=== PATIENT | male | born 1960 | race Caucasian/White ===

== ENCOUNTER 2017-07-20 05:47 | Observation (INO) | payer BC, OTHER ==
--- NOTE | 2017-07-15 15:22 | GHP ---
[f rep st] PREOP HISTORY AND PHYSICAL DATE OF ADMISSION: 07/20/2017 PROBLEM: Left hip severe arthritis. HISTORY OF PRESENT ILLNESS: The patient is a 57-year-old man admitted for a left total hip arthropla sty. In the past year or so he has been experiencing increasing pain in the left hip. It started as groin pain. It has gradually worsened. He is having daily pain and mild night pain. He has troubl e putting on his shoes and socks on the left foot. He is using ibuprofen. His activities are very l imited because of his hip. A few years ago Dr. Castellanos performed a right total knee arthroplasty. Recently, he has been losing mot ion in the total knee. The knee is painful, and that also limits his activities. PAST MEDICAL HISTORY: He is treated for asthma and depression. No history of heart disease, stents, DVT, hepatitis, sleep apnea or bleeding problems. CURRENT MEDICATIONS: Bupropion XL 300 mg per day, Ventolin inhaler. ALLERGIES: Drug allergies: None. Metal allergy: None. Latex allergy: None. SOCIAL HISTORY: The patient is . His daughter lives with him. He does not smoke cigarettes and occasionally drinks alcohol. He is currently not working. FAMILY HISTORY: Positive for arthritis and cancer. PHYSICAL EXAMINATION: GENERAL: He is a muscular, fit-appearing man. Height 5 feet 10 inches. Weig ht 150 pounds. BMI 21.5. EYES: The conjunctivae and sclerae are clear. Pupils are round and react vivek. MOUTH: Good oral hygiene. No loose teeth. CHEST: Clear. HEART: Regular rhythm. No murmur s. EXTREMITIES: Pertinent findings are limited to his left hip. He has full hip extension and 80 d egrees of flexion. External rotation 0 degrees. Internal rotation 0 degrees. Abduction 20 degrees. Extremes of motion are painful. IMAGING: His films show advanced degenerative arthritis of his left hip. He has mild protrusio. Cy stic degeneration is present within the femoral head. IMPRESSION ON ADMISSION: 1. Left hip advanced degenerative arthritis. He is prepared for a left total hip arthroplasty. 2. Status post right total knee arthroplasty with difficulty regaining motion. 3. Treatment for asthma. 4. Treatment for hypertension. PLAN: He will undergo a left total hip arthroplasty. The surgery has been described to him, isabela maxwell the risks, complications, expectations and recovery time. I have discussed with him the risk of l eg length inequality, dislocation, sciatic nerve injury and infection. He understands that he is you ng for a total hip arthroplasty and might require revision surgery in the future. He is a few millim eters short on the left, and I intend to lengthen him. All his questions have been answered, and he consents to surgery. /[id number]/MODL
[2017-07-20] MEDS ORDERED: ACETAMINOPHEN 325 MG TAB PO ONE (05:58)
[2017-07-20] MEDS ORDERED: ceFAZolin 2 GM/SWFI 2 GM/20 ML SYR IVP ONE (05:58)
[2017-07-20] MEDS ORDERED: GABAPENTIN 300 MG CAP PO ONE (05:58)
[2017-07-20] MEDS ORDERED: DEXAMETHASONE 4 MG/ML VIAL IVP ONE (05:58)
[2017-07-20] MEDS ORDERED: FAMOTIDINE 20 MG TAB PO ONE (05:58)
[2017-07-20] MEDS ORDERED: LR 1,000 ML IV ONE (06:00)
[2017-07-20] MEDS ORDERED: ROPIVACAINE 0.2% 80 MG, EPINEPHrine 0.2 MG, KETOROLAC TROMETHAMINE 30 MG in SYRINGE 0 ML IU ONE (06:00)
[2017-07-20] MEDS ORDERED: TRANEXAMIC ACID 1,500 MG in NS 100 ML IV ONE (06:00)
[2017-07-20] MEDS ORDERED: POVIDONE-IODINE 20 ML in SODIUM CL IRRIG SOLUTION 500 ML IRR ONE (06:00)
[2017-07-20] MEDS ORDERED: MIDAZOLAM 2 MG/2 ML VIAL IVP ONE (06:53)
--- NOTE | 2017-07-20 06:53 | PDANEPAE ---
ANE History of Present Illness Hip OA ANE Past Medical History Past Medical History: L hip OA - Cardiovascular History Hx Hypertension: No Hx Arrhythmias: No Hx Chest Pain: No Hx Coronary Artery / Peripheral Vascular Disease: No Hx CHF / Valvular Disease: No Hx Palpitations: No - Pulmonary History Hx COPD: No Hx Asthma/Reactive Airway Disease: Yes Hx Recent Upper Respiratory Infection: No Hx Oxygen in Use at Home: No Hx Sleep Apnea: No Sleep Apnea Screening Result - Last Documented: Negative Pulmonary History Comment: asthma-inhaler as needed. pt uses regularly. - Neurologic History Hx Cerebrovascular Accident: No Hx Seizures: No Hx Dementia: No - Endocrine History Hx Diabetes: No Hypothyroid: No Hyperthyroid: No Obesity: no - Renal History Hx Renal Disorders: No - Liver History Hx Hepatic Disorders: No - Neurological & Psychiatric Hx Hx Neurological and Psychiatric Disorders: Yes Neurological / Psychiatric History Comment: depression, anxiety - Cancer History Hx Cancer: No - Congenital Disorder History Hx Congenital Disorders: No - GI History Hx Gastrointestinal Disorders: Yes Gastrointestinal History Comment: chronic heartburn-on med. ulcerative colitis - meds - Other Health History Other Health History: OSTEO-ARTHRITIS. tinnitus both ears - Chronic Pain History Chronic Pain: Yes (OSTEOARTHRITIS W/THUMBS, HIP, ELBOWS) - Surgical History Prior Surgeries: R TKA. R knee ANE Review of Systems Review of Systems: - Exercise capacity Exercise capacity: >=4 METS METS (RN): 4 METS ANE Patient History - Allergies Allergies/Adverse Reactions: No Known Allergies Allergy (Unverified 06/08/13 17:14) - Home Medications Home medications: home medication list seen and reviewed Home Medications: Albuterol Sulfate [Proventil Hfa] 2 puffs IH Q6 PRN 06/08/13 [Last Taken ] Bupropion HCl [Bupropion XL] 300 mg PO DAILY 06/08/13 [Last Taken 07/20/17] Calcium Carb/Mag Oxide/Cu/Zinc [Njbuqzf-Htucnnxry-Yniq Tab] 1 each PO DAILY 06/09 [Last Taken 07/12/17] Cholecalciferol (Vitamin D3) [Vitamin D3] 5,000 unit PO DAILY 06/08/13 [Last Taken 07/12/17] Citalopram [celeXA 20 MG (RX)] 40 mg PO DAILY 06/08/13 [Last Taken 07/20/17] Ibuprofen [Motrin 200 mg (OTC)] 800 mg PO BID PRN 06/08/13 [Last Taken 07/19/17] Multivit-Min/FA/Lycopene/Lut [Centrum Silver Tablet] 1 each PO DAILY 06/08/13 [ Last Taken 07/12/17] Omeprazole [Prilosec 20 mg] 20 mg PO DAILY 06/08/13 [Last Taken 07/20/17] Vitamin B Complex [B Complex] 1 each PO DAILY 06/08/13 [Last Taken 07/13/17] - NPO status NPO Since - Liquids (Date): 07/20/17 NPO Since - Liquids (Time): 05:45 NPO Since - Solids (Date): 07/19/17 NPO Since - Solids (Time): 18:00 - Anes Hx Anes Hx: no prior problems - Smoking Hx Smoking Status: Never smoked - Family Anes Hx Family Anes Hx: neg - N/A Family Hx Anesthesia Complications: none ANE Labs/Vital Signs - Vital Signs Blood Pressure: 124/89 Heart Rate: 51 Respiratory Rate: 16 O2 Sat (%): 96 Height: 175.26 cm Weight: 77.111 kg ANE Physical Exam - Airway Mallampati Score: Class 1 Mouth exam: normal dental/mouth exam - Pulmonary Pulmonary: no respiratory distress, no rales or rhonchi, clear to auscultation - Cardiovascular Cardiovascular: regular rate and rhythym - ASA Status ASA Status: II ANE Anesthesia Plan Anesthesia Plan: MAC, spinal
[2017-07-20] MEDS ORDERED: ceFAZolin 1 GM/5 ML SYR ONE (06:54)
--- NOTE | 2017-07-20 07:04 | PDHPUP ---
History & Physical Update H&P update statement: This history and physical update is based on an assessment of the patient which was completed after admission or registration (within 24 hours), but prior to the surgery/procedure. H&P update: H&P reviewed & patient examined, no change in patient's condition since H&P completed
[2017-07-20] MEDS ORDERED: fentaNYL 100 MCG/2 ML INJ ONE (07:07)
[2017-07-20] MEDS ORDERED: PROPOFOL/EMULSION 500 MG/50 ML BOTTLE IV ONE (07:07)
[2017-07-20] MEDS ORDERED: LIDOCAINE 2% 5 ML SDV ONE (07:08)
[2017-07-20] MEDS ORDERED: ONDANSETRON 4 MG/2 ML VIAL IVP PRN ×2 (08:19→09:14)
[2017-07-20] MEDS ORDERED: fentaNYL 100 MCG/2 ML INJ IVP PRN (08:19)
[2017-07-20] MEDS ORDERED: NALOXONE HCL 0.4 MG/ML INJ IVP PRN (08:19)
[2017-07-20] MEDS ORDERED: ALBUTEROL 3 ML DEYVIAL IH PRN (08:19)
--- NOTE | 2017-07-20 08:56 | POSTOPPROG ---
Post Op Note Date of Operation: 07/20/17 Surgeon: Jong Rivera [employer] Ironworker: Celestine/Gama Anesthesiologist: Dr. Eric Tipton Anesthesia: IV Sedation, Spinal Post-op Diagnosis: Left hip severe degenerative arthritis Procedure: Left total hip arthroplasty Inf/Abcess present in the surg proc area at time of surgery?: No EBL: 100-500
--- NOTE | 2017-07-20 09:09 | POSTANESTH ---
Post Anesthetic Evaluation Cardiovascular Status: Normal, Stable Respiratory Status: Similar to Pre-op Cond. Level of Consciousness/Mental Status: Can Participate in Eval Pain Control: Adequate, Prn Tx Ordered Nausea/Vomiting Control: Adequate, Prn Tx Ordered Complications Possibly Related to Anesthesia: None Noted
[2017-07-20] MEDS ORDERED: BISACODYL 10 MG SUPP PR PRN (09:14)
[2017-07-20] MEDS ORDERED: oxyCODONE IR 5 MG TAB PO PRN (09:14)
[2017-07-20] MEDS ORDERED: CYCLOBENZAPRINE 10 MG TAB PO PRN (09:14)
[2017-07-20] MEDS ORDERED: PROMETHAZINE HCL 25 MG/ML INJ IVP PRN (09:14)
[2017-07-20] MEDS ORDERED: TEMAZEPAM 15 MG CAP PO PRN (09:14)
[2017-07-20] MEDS ORDERED: POLYETHYLENE GLYCOL 3350 17 GM PKT PO PRN (09:14)
[2017-07-20] MEDS ORDERED: NS 500 ML IV PRN (09:14)
[2017-07-20] MEDS ORDERED: ONDANSETRON DISINTEGRATING 4 MG TAB PO PRN (09:14)
[2017-07-20] MEDS ORDERED: DIPHENOXYLATE/ATROPINE LOMOTIL 1 TAB PO PRN (09:14)
[2017-07-20] MEDS ORDERED: PROMETHAZINE HCL 25 MG SUPPR PR PRN (09:14)
[2017-07-20] MEDS ORDERED: MAGNESIUM HYDROXIDE 30 ML UDCUP PO PRN (09:14)
[2017-07-20] MEDS ORDERED: traMADol 50 MG TAB PO PRN (09:14)
[2017-07-20] MEDS ORDERED: LACTULOSE 20 GM/30 ML UDCUP PO PRN (09:14)
[2017-07-20] MEDS ORDERED: diphenhydrAMINE 25 MG CAP PO PRN (09:14)
[2017-07-20] MEDS ORDERED: LR 1,000 ML IV SCH (09:30)
--- NOTE | 2017-07-20 09:36 | GOP ---
[f rep st] OPERATIVE REPORT DATE OF OPERATION: 07/20/2017 SURGEON: Jong Rivera MD TEST BORING CREW CHIEF: 1. Eric Sprague CFA. 2. Donald Malloy P.A.-C. ANESTHESIA: A combination of Marcaine, spinal, and IV sedation. ANESTHESIOLOGIST: Dr. Tipton. PREOPERATIVE DIAGNOSIS: Left hip severe degenerative arthritis. POSTOPERATIVE DIAGNOSIS: Left hip severe degenerative arthritis. PROCEDURE PERFORMED: 07/20/2017, left total hip arthroplasty, ceramic femoral head on highly cross-l inked polyethylene cup liner. FINDINGS: DESCRIPTION OF PROCEDURE: The patient was given 2 g of IV Ancef preoperatively within 60 minutes of surgery. He also received IV tranexamic acid at a dose of 20 mg/kg. He was placed on the operating room table and given spinal anesthesia with Marcaine by Dr. Tipton. He was then placed supine and given IV sedation. A Esquivel catheter was not used. He wore a DRAGAN stocking and SCD on the nonoper ative leg. He was rolled to the right lateral decubitus position. The position was secured with the pegboard table attachment. An axillary roll was used, and all pressure points were carefully padded . I was careful to lock his pelvis in a vertical position. His perineum was isolated with plastic a dhesive drapes. The left hip and left lower extremity were prepped with ChloraPrep. They were drape d free using sterile sheets, stockinette, and Ioban plastic adhesive drape. The [employer] time-out was performed to verify the correct surgical side and site and the correct patient identity. The [place] time-out was also performed. I made a 4-5 inch straight oblique posterolateral hip skin incision. Subcutaneous tissues were sharp ly divided, and hemostasis was obtained using electrocautery. His fascia doyle was identified and spl it along the axis of its fibers. I curved posteriorly and proximally, and split the fascia of the gl uteus mali and bluntly split the muscle fibers in line with their orientation. The Charnley self- retaining retractor was inserted. His sciatic nerve was located, partially exposed, and protected th roughout the procedure. The external rotators and the posterior hip capsule were divided as separate layers at the base of the femoral neck, tagged, and reflected posteriorly. A smooth 8-inch Loretta n pin was inserted vertically into the ilium, superior to the acetabulum. An 8-inch drill bit was in serted vertically into the greater trochanter and parallel to the first pin. The distance between th e 2 was measured for leg length reference. His femoral head was dislocated posteriorly. Severe dege nerative changes were present on the femoral head. The femoral neck was osteotomized at the appropri ate level and inclination. I was careful to preserve all the posterior capsule and most of the anterior capsule. The remnant of the damaged labrum was excised. I prepared the femur first. This allowed me to judge's clerk the amount of natural femoral neck anteversion. This, in turn, allowed me to later determine the correct amount of cup anteversion. He had approxi mately 10-12 degrees of natural femoral neck anteversion. The canal was first opened laterally with a box chisel. I used a starter reamer on power and then hand broached sequentially up to size 6. e accolade II size 6 broach with a high offset was used as a trial stem. I was careful to lateralize adequately. Appropriate retractors were inserted to expose the acetabulum. The acetabulum was reamed sequentiall y up to 55 mm. I selected a 56 mm Rodrick Tritanium solid-backed hemispherical shell. This was jodi ed securely into place in the proper degree of inclination anteversion. I used the transverse acetab ular ligament and other acetabular bony landmarks to help me properly orient the cup. I inserted a s crew-in metal dome hole plug. I performed a series of trial reductions to determine length and stability. I concluded that the siz e 6 high offset stem with the 36 mm head and a 0 mm neck length, with a flush trial liner gave me the proper combination of appropriate length and good anterior and posterior stability. He was 4-5 mm s hort preoperatively, and I was intentionally lengthening him. The flush Rodrick X3 highly cross-linked polyethylene liner was inserted and tapped securely into francisco ce. The Rodrick Accolade II stem in a size 6 with high offset was inserted press-fit and was very ti ght. I did 1 final trial reduction and confirmed that the 0 neck length with a 36 mm head was the pr oper combination. The Stephan Biolox Delta ceramic head with an outside diameter of 36 mm and a neck length of 0 mm was tapped securely onto the clean trunnion. The acetabulum was irrigated, cleaned, and the hip was reduced 1 final time. He had excellent anterior and posterior stability and appropri ate lengthening. 40 mL of the joint anesthetic cocktail were injected into the capsule, the deep musculature, and the subcutaneous tissues around the skin edges. The joint was thoroughly irrigated 1 final time with a d ilute Betadine solution. His sciatic nerve was reinspected and looked unharmed. The external rotato rs and the posterior hip capsule were repaired in separate layers with #2 FiberWire sutures through d rill holes in the greater trochanter. This provided a strong posterior capsular and external rotator repair. The fascia doyle was closed first with a couple of [id number] #2 FiberWire sutures foll owed by a running #2 barbed Ethicon Stratafix PDO suture. Subcutaneous tissues were closed with a ru nning 0 barbed Ethicon Stratafix Monoderm suture. The skin was closed with a running 3-0 barbed Ethi con Stratafix Monoderm subcuticular suture. The skin edges were reapproximated and sealed with Opp alaniz glue. The wound was covered with a large Mepilex waterproof surgical dressing. A long-leg DRAGAN stocking and SCD were applied to his left lower extremity. He wore a stocking and SCD on the opposite leg during the procedure. An abduction pillow was placed between his knees. He was awakened from anesthesia and rolled to the supine position on his [facility]. He was taken to PACU in satisfactory condition. There were no recognized intraoperative complications. The estimated blood loss about 300 mL. The sponge and needle count were correct on 2 occasions. I used a Stephan Tritanium hemispherical solid-backed acetabular shell with an outside diameter of 56 mm. The liner was a Stephan X3 flush highly cross-linked liner with an inside diameter of 36 mm. T he femoral component was a high offset Accolade II stem in a size 6 and press-fit. The femoral head was a Stephan Biolox Delta ceramic head with a 0 neck length and a 36 mm outside diameter. At the patient's request I took several photographs intraoperatively on his camera. Eric Sprague and Donald Malloy acted as surgical first assistants. Their assistance was a medical necessity for safe completion of the procedure. /[id number]/MODL
[2017-07-20] MEDS ORDERED: ALBUTEROL 60 PUFFS/8 GM MDI IH PRN (09:45)
[2017-07-20] MEDS: ACETAMINOPHEN 325 MG TAB PO SCH ×3 (12:57→23:46)
[2017-07-20] MEDS: KETOROLAC 30 MG/1 ML SDV IVP PRN (13:04)
[2017-07-20] MEDS: ceFAZolin 2 GM/DEXTROSE 100 ML IV SCH ×2 (15:50→23:44)
--- NOTE | 2017-07-20 15:50 | SOAPPROG ---
SOAP Progress Note Assessment/Plan: Assessment: probably corneal abrasion. Plan: continue with saline flush prn. monitor condition. consider opthamology consult if conditions worsen. pt. in agreement with this plan. 07/20/17 15:50 Subjective: s/p ANDREA this AM. Post procedure pt complains of irritability in left eye. Objective: Vital Signs Temp Pulse Resp BP Pulse Ox 36.4 C 57 L 16 110/70 93 07/20/17 12:25 07/20/17 12:25 07/20/17 12:25 07/20/17 12:25 07/20/17 12:25 07/19/17 07/20/17 07/21/17 05:59 05:59 05:59 Intake Total 1460 Output Total 0 Balance 1460 pt seen at 1540. reports irritability and feels like something is in his eye. negative for pain. slight discomfort. eye without erythema. mild watering. ICD10 Worksheet Patient Problems: Problems Problem Status Onset Osteoarthritis of left hip Acute Arthritis of knee, right Acute
--- NOTE | 2017-07-20 17:46 | ASMTCMCOM ---
CM Note CM Note Notes: Pt is s/p L ANDREA. PT recommending home vs homecare. He has had [facility] in the past. CM will follow for any d/c needs. Date Signed: 07/20/2017 05:45 PM Electronically Signed By:LINA Coates
[2017-07-20] MEDS: ASPIRIN 325 MG TAB PO SCH (20:27)
[2017-07-20] MEDS: SENNOSIDES/DOCUSATE SODIUM TAB PO SCH (20:27)
[2017-07-20] MEDS: FAMOTIDINE 20 MG TAB PO SCH (20:27)
[2017-07-21 04:44] VITALS: O2SAT 96
[2017-07-21] MEDS: ACETAMINOPHEN 325 MG TAB PO SCH (05:43)
[2017-07-21 07:45] VITALS: BP 120/88; PULSE 54; RESP 15; TEMP 98
[2017-07-21] MEDS: ASPIRIN 325 MG TAB PO SCH (07:54)
[2017-07-21] MEDS: FAMOTIDINE 20 MG TAB PO SCH (07:55)
[2017-07-21] MEDS: SENNOSIDES/DOCUSATE SODIUM TAB PO SCH (07:56)
[2017-07-21] MEDS: KETOROLAC 30 MG/1 ML SDV IVP PRN (07:58)
[2017-07-21] MEDS ORDERED: buPROPion XL 150 MG TAB PO SCH (09:00)
[2017-07-21] MEDS ORDERED: FERROUS SULFATE 140 MG TAB.ER PO SCH (09:00)
[2017-07-21] MEDS ORDERED: CITALOPRAM 20 MG TAB PO SCH (09:00)
[2017-07-21] MEDS ORDERED: PANTOPRAZOLE SODIUM 40 MG TAB PO SCH (09:00)
--- NOTE | 2017-07-21 09:30 | SOAPPROG ---
SOAP Progress Note Assessment/Plan: Assessment: Afebrile. Awake and alert. Mild pain. Up and walking. Dsg is dry. Min swelling. Sciatic nerve intact. H/H is good. c/o soreness in left eye. No vision problems. Better today. Films look excellent. Plan: DC today. 07/21/17 09:28 Objective: Vital Signs Temp Pulse Resp BP Pulse Ox 36.7 C 54 L 15 120/88 H 96 07/21/17 07:45 07/21/17 07:45 07/21/17 07:45 07/21/17 07:45 07/21/17 07:45 Laboratory Results 07/21/17 04:39 07/20/17 07/21/17 07/22/17 05:59 05:59 05:59 Intake Total 3185 400 Output Total 2475 Balance 710 400 ICD10 Worksheet Patient Problems: Problems Problem Status Onset Osteoarthritis of left hip Acute Arthritis of knee, right Acute
--- NOTE | 2017-07-21 09:46 | GDS ---
[f rep st] DISCHARGE SUMMARY ADMISSION DIAGNOSIS: Left hip severe degenerative arthritis. DISCHARGE DIAGNOSIS: Left hip severe degenerative arthritis. OPERATION PERFORMED: Left total hip arthroplasty. POSTOPERATIVE COMPLICATIONS: None. CONDITION ON DISCHARGE: Improved. DESCRIPTION OF HOSPITAL COURSE: The patient was admitted to the hospital on the morning of surgery. His admission CBC was normal. The same day, under a combination of Marcaine, spinal, and IV sedatio n, he underwent a left total hip arthroplasty. Postoperatively, he was treated with multimodal DVT p rophylaxis, including aspirin. On the first postoperative day his hemoglobin and hematocrit were 13. 1 and 37.4. He was seen by Physical Therapy and made excellent progress with ambulation and stairs. By the time of discharge, he was afebrile, his wound was dry, and he was independent walking with cr utches. DISPOSITION: The patient is discharged to his home. He may progress to full weightbearing on the le ft as tolerated. Use an abduction pillow in bed for 3 weeks. Continue aspirin 325 mg p.o. daily for 21 days. Continue DRAGAN stockings for 1 week. He has prescriptions for oxycodone and tramadol for pa in control. I will see him back in the office on August 09, 2017. If there any problems, he is to call me at the office. /[id number]/MODL
--- NOTE | 2017-07-21 14:31 | ASDISCHSUM ---
Discharge Information Plan Status:Home with No Needs Medically Cleared to Leave: Discharge Date:07/21/2017 12:31 PM CM D/C Disposition:Home, Routine, Self-Care ADT D/C Disposition:Home, Routine, Self-Care Projected Discharge Date:07/21/2017 12:31 PM Transportation at D/C: Discharge Delay Reason: Follow-Up Date:07/21/2017 12:31 PM Discharge Slot: Final Diagnosis: Placement Information Patient Contact Information Contact Name:JAILENE Relationship:Other Address:[address] Work Phone: City:[place] Alternate Phone: [facility]/Zip Code:[place] [address] Email: Financial Information Financial Class:HMO and PPO Plans Primary Plan Desc:HMO [place] [employer] Primary Plan Number:[id number] Secondary Plan Desc: Secondary Plan Number: Assessment Information [facility] CM Progress Note CM Note CM Note Notes: Pt is s/p L ANDREA. PT recommending home vs homecare. He has had [facility] in the past. CM will follow for any d/c needs. Date Signed: 07/20/2017 05:45 PM Electronically Signed By:LINA Coates [facility] CM Progress Note CM Note CM Note Notes: Pt medically stable for d/c, no CM d/c needs identified. Date Signed: 07/21/2017 02:30 PM Electronically Signed By:LINA Rob Intervention Information
== END 2017-07-21 12:31 | disposition home or self-care (01) ==
LOC: F3N 05:47 → OBSVTOIN 16:04 → INTOOBSV 16:04 → PREINTOOBSV 17:48
PROVIDERS: ADMIT Orthopaedic Surgery; ATTEND Orthopaedic Surgery
PROC: 0SRD0JZ Replacement of Left Knee Joint with Synthetic Substitute, Open Approach (ICD-10-PCS; principal; 2017-07-20 07:15)
DX: M17.12 Unilateral primary osteoarthritis, left knee (principal); H57.12 Ocular pain, left eye; Z96.651 Presence of right artificial knee joint; J45.909 Unspecified asthma, uncomplicated; F32.9 Major depressive disorder, single episode, unspecified
CPT/HCPCS: 27447; 72170; 97116; 97161; 97165; 97530; 97535; G0378; J0171; J0690; J1100; J1885; J2250; J2704; J2795; J3010